=== PATIENT | female | born 1940 | race Caucasian/White ===

== ENCOUNTER 2017-09-30 11:45 | Inpatient (IN) ==
[2017-09-30] MEDS ORDERED: ALBUTEROL/IPRATROPIUM 3 ML NEB RESP TX STA (12:14)
[2017-09-30] MEDS ORDERED: FUROSEMIDE 40 MG/4 ML VIAL IV STA (12:14)
[2017-09-30] MEDS ORDERED: MORPHINE 4 MG/1 ML VIAL IV STA (12:14)
[2017-09-30] MEDS ORDERED: ONDANSETRON 4 MG/2 ML VIAL IV PRN (12:54)
[2017-09-30] MEDS ORDERED: ACETAMINOPHEN 325 MG TABLET PO PRN (12:54)
[2017-09-30] MEDS ORDERED: LEVOFLOXACIN INJ 500 MG in PREMIX 1 EACH IV STA (13:30)
[2017-09-30 13:37] LABS: Troponin I Only < 0.015 NG/ML (0.00-0.045)
[2017-09-30] MEDS ORDERED: cefTRIAXone 1,000 MG in SYRINGE 1 EACH IV SCH (16:00)
[2017-09-30] MEDS ORDERED: MAGNESIUM SULFATE 1 GM/2 ML VIAL IM ONE (16:00)
[2017-09-30] MEDS: POTASSIUM CHLORIDE 20 MEQ TABLET PO SCH ×2 (17:22→20:23)
[2017-09-30] MEDS ORDERED: FUROSEMIDE 40 MG/4 ML VIAL IV ONE (19:00)
[2017-09-30] MEDS: ALBUTEROL/IPRATROPIUM 3 ML NEB RESP TX SCH (23:16)
[2017-10-01] MEDS: ALBUTEROL/IPRATROPIUM 3 ML NEB RESP TX SCH ×4 (00:25→19:31)
[2017-10-01] MEDS: POTASSIUM CHLORIDE 20 MEQ TABLET PO SCH ×2 (00:46→05:27)
[2017-10-01 06:00] LABS: Basophils % 0.3 % (0.0-0.8); Eosinophils # 0.1 10*3/uL (0.0-0.87); Eosinophils % 0.9 % (0.00-10.9); Hematocrit 33.2 VOL% (35.7-47.0); Hemoglobin 10.8 GM/DL (12.0-16.0); Immature Granulocytes % 0.5 %; Immature Granulocytes Absolute 0.04 #; Lymphocytes # 0.8 10*3/uL (1.4-4.0); Lymphocytes % 11.1 % (21.3-54.2); Mean Corpuscular HGB Conc 32.5 GM/DL (32-36); Mean Corpuscular Hemoglobin 30 PG (27-34); Mean Platelet Volume 13.7 FL (9.6-12.0); Monocytes # 0.9 10*3/uL (0.11-0.8); Monocytes % 12.6 % (1.7-12.7); Neutrophils # 5.6 10*3/uL (1.4-7.4); Neutrophils % 74.6 % (38.7-73.9); Platelet Count 154 T/CUMM (130-400); Red Blood Count 3.57 MC/CUMM (3.8-5.5); Red Cell Distribution Width 16.2 % (9.3-17.3); White Blood Count 7.5 T/CUMM (4-12)
[2017-10-01 06:19] LABS: Calcium 8.1 MG/DL (8.5-10.1); Potassium 4.7 MMOL/L (3.5-5.1)
[2017-10-01] MEDS: FUROSEMIDE 40 MG/4 ML VIAL IV SCH ×2 (08:58→17:47)
[2017-10-01] MEDS: PANTOPRAZOLE 40 MG TABLET PO SCH (08:59)
[2017-10-01] MEDS: ASPIRIN CHEW 81 MG TABLET PO SCH (11:04)
[2017-10-01] MEDS: ROSUVASTATIN 20 MG TABLET PO SCH (11:04)
[2017-10-01] MEDS: AMIODARONE 200 MG TABLET PO SCH (11:04)
[2017-10-01] MEDS: CITALOPRAM 40 MG TABLET PO SCH (11:04)
[2017-10-01] MEDS: LEVOTHYROXINE 25 MCG TABLET PO SCH (11:04)
[2017-10-01] MEDS: LEVOFLOXACIN INJ 500 MG in PREMIX 1 EACH IV SCH (14:13)
[2017-10-01] MEDS: cefTRIAXone 1,000 MG in SYRINGE 1 EACH IV SCH (17:48)
[2017-10-01] MEDS: ATENOLOL 25 MG TABLET PO SCH (20:52)
[2017-10-02] MEDS: ALBUTEROL/IPRATROPIUM 3 ML NEB RESP TX SCH ×4 (00:19→19:42)
[2017-10-02 05:44] LABS: Basophils % 0.4 % (0.0-0.8); Eosinophils # 0.2 10*3/uL (0.0-0.87); Eosinophils % 2.8 % (0.00-10.9); Hematocrit 31.7 VOL% (35.7-47.0); Hemoglobin 10.6 GM/DL (12.0-16.0); Immature Granulocytes % 0.6 %; Immature Granulocytes Absolute 0.04 #; Lymphocytes # 0.9 10*3/uL (1.4-4.0); Lymphocytes % 13.6 % (21.3-54.2); Mean Corpuscular HGB Conc 33.4 GM/DL (32-36); Mean Corpuscular Hemoglobin 31 PG (27-34); Mean Corpuscular Volume 92.2 FL (87-102); Mean Platelet Volume 13.5 FL (9.6-12.0); Monocytes # 0.7 10*3/uL (0.11-0.8); Monocytes % 10.8 % (1.7-12.7); Neutrophils # 4.8 10*3/uL (1.4-7.4); Neutrophils % 71.8 % (38.7-73.9); Platelet Count 161 T/CUMM (130-400); Red Blood Count 3.44 MC/CUMM (3.8-5.5); Red Cell Distribution Width 16.4 % (9.3-17.3); White Blood Count 6.7 T/CUMM (4-12)
[2017-10-02 05:59] LABS: Potassium 4.2 MMOL/L (3.5-5.1)
[2017-10-02] MEDS: ASPIRIN CHEW 81 MG TABLET PO SCH (08:15)
[2017-10-02] MEDS: LEVOTHYROXINE 25 MCG TABLET PO SCH (08:15)
[2017-10-02] MEDS: CITALOPRAM 40 MG TABLET PO SCH (08:15)
[2017-10-02] MEDS: ROSUVASTATIN 20 MG TABLET PO SCH (08:15)
[2017-10-02] MEDS: FUROSEMIDE 40 MG/4 ML VIAL IV SCH ×2 (08:15→15:05)
[2017-10-02] MEDS: AMIODARONE 200 MG TABLET PO SCH (08:15)
[2017-10-02] MEDS: PANTOPRAZOLE 40 MG TABLET PO SCH (08:15)
[2017-10-02] MEDS: LEVOFLOXACIN INJ 500 MG in PREMIX 1 EACH IV SCH (08:20)
[2017-10-02] MEDS: cefTRIAXone 1,000 MG in SYRINGE 1 EACH IV SCH (20:53)
[2017-10-02] MEDS: ATENOLOL 25 MG TABLET PO SCH (20:59)
[2017-10-03] MEDS: ALBUTEROL/IPRATROPIUM 3 ML NEB RESP TX SCH ×2 (00:16→07:06)
[2017-10-03] MEDS: LEVOTHYROXINE 25 MCG TABLET PO SCH (06:10)
[2017-10-03 07:04] LABS: Calcium 8.4 MG/DL (8.5-10.1); Osmolality,Calculated 291.6 MOS/KG (273-304); Potassium 3.6 MMOL/L (3.5-5.1)
[2017-10-03 07:24] VITALS: BP 118/48
[2017-10-03] MEDS: AMIODARONE 200 MG TABLET PO SCH (08:46)
[2017-10-03] MEDS: ROSUVASTATIN 20 MG TABLET PO SCH (08:46)
[2017-10-03] MEDS: CITALOPRAM 40 MG TABLET PO SCH (08:46)
[2017-10-03] MEDS: ASPIRIN CHEW 81 MG TABLET PO SCH (08:46)
[2017-10-03] MEDS: PANTOPRAZOLE 40 MG TABLET PO SCH (08:46)
[2017-10-03] MEDS: FUROSEMIDE 40 MG/4 ML VIAL IV SCH (08:46)
[2017-10-03] MEDS: LEVOFLOXACIN INJ 500 MG in PREMIX 1 EACH IV SCH (08:50)
== END 2017-10-03 10:56 | disposition home or self-care (01) | DRG 293 ==
LOC: N.ED 11:45 → N.EDINP 12:54 → SUATTDRO 12:54 → N.2E 14:43
PROVIDERS: ADMIT Internal Medicine Cardiovascular Disease; ATTEND Internal Medicine